=== PATIENT | female | born 1950 | race Caucasian/White ===

== ENCOUNTER → 2024-10-24 | Outpatient (CLI) | payer MEDICARE, SELFPAY ==
[2024-10-24 11:19] LABS: Calcium, Ionized 4.8 mg/dL (4.6-5.6)
[2024-10-24 11:23] LABS: Basophils % (Auto) 0 % (0-2.5); Eosinophils # (Auto) 0.1 Thou/mm3 (0.0-0.5); Eosinophils % (Auto) 2 % (0-10); Hematocrit 39.2 % (36.0-46.0); Hemoglobin 12.1 g/dL (12.0-16.0); Immature Granulocytes % (Auto) 0 % (0-0); Immature Granulocytes Auto 0.02 Thou/mm3 (0.00-0.00); Lymphocytes # (Auto) 2.9 Thou/mm3 (1.0-4.8); Lymphocytes % (Auto) 32 % (10-50); Mean Corpuscular HGB Conc 30.9 g/dl (31.0-37.0); Mean Corpuscular Hemoglobin 25.1 pg (25.0-35.0); Mean Corpuscular Volume 81 fL (80-100); Monocytes # (Auto) 0.5 Thou/mm3 (0.0-0.8); Monocytes % (Auto) 5 % (0-12); Neutrophils # (Auto) 5.6 Thou/mm3 (1.8-7.7); Neutrophils % (Auto) 61 % (37-80); Nucleated Red Blood Cell % 0 /100 WBC (0); Platelet Count 250 Thou/mm3 (140-440); RDW Standard Deviation 41.6 fL (36.4-46.3); Red Blood Count 4.83 Miln/mm3 (4.00-5.20); White Blood Count 9.1 Thou/mm3 (3.6-11.0)
[2024-10-24 11:30] LABS: Glucose Estimated Average 177 mg/dL (80-131); Hemoglobin A1C 7.8 % Hgb (4.8-6.0)
[2024-10-24 11:38] LABS: Parathyroid Hormone Intact 306.2 pg/ml (18.5-88.0)
[2024-10-24 11:41] LABS: Vitamin D 25 Hydroxy Total 21.7 ng/mL (7.3-40.2)
[2024-10-24 11:44] LABS: Alanine Aminotransferase 12 U/L (10-49); Albumin, Serum 4.2 gm/dL (3.4-4.8); Albumin/Globulin Ratio 1.8 (1.2-2.2); Alkaline Phosphatase 95 U/L (46-116); Anion Gap 9 (7-16); Aspartate Amino Transferase 12 U/L (0-34); BUN/Creatinine Ratio 23 Ratio (12-20); Bilirubin,Direct < 0.1 mg/dL (0.0-0.3); Bilirubin,Total 0.2 mg/dL (0.3-1.2); Blood Urea Nitrogen 39 mg/dL (9-23); Calcium 9.1 mg/dL (8.3-10.6); Calcium (Corrected) 9.1 mg/dL (8.5-10.1); Carbon Dioxide 24.7 mMol/L (20.0-31.0); Cardiac Risk Estimate 4.2 RATIO (3.7-5.6); Chloride 106 mMol/L (98-107); Cholesterol 143 mg/dL (132-200); Creatinine (Component) 1.7 mg/dL (0.6-1.3); Globulin 2.3 gm/dL (2.3-3.5); Glucose 156 mg/dL (74-106); HDL Cholesterol 34 mg/dL (40-60); LDL Cholesterol,Calculated 45 mg/dL (0-130); Osmolality,Calculated 291 (275-295); Phosphorous 3.6 mg/dL (2.4-5.1); Potassium 5.2 mMol/L (3.4-5.1); Sodium 140 mMol/L (136-145); Total Protein 6.5 gm/dL (5.7-8.2); Triglycerides 318 mg/dL (30-150); eGFR 32 See Note
== END | disposition home or self-care (01) ==
PROVIDERS: PCP Family Medicine; Referring Provider Internal Medicine Nephrology; Visit Provider Specialist
DX: I12.9 Hypertensive chronic kidney disease with stage 1 through stage 4 chronic kidney disease, or unspecified chronic kidney disease (principal); E11.22 Type 2 diabetes mellitus with diabetic chronic kidney disease; N18.9 Chronic kidney disease, unspecified; E66.9 Obesity, unspecified; E11.65 Type 2 diabetes mellitus with hyperglycemia
CPT/HCPCS: 36415; 80053; 80061; 82248; 82306; 82330; 83036; 83970; 84100; 85025

== ENCOUNTER 2024-10-27 20:51 | Emergency (ER) | payer MEDICARE, SELFPAY ==
[2024-10-27 21:51] VITALS: BP 127/65; PULSE 78; RESP 20; TEMP 36.6; O2SAT 98
--- NOTE | 2024-10-27 21:55 | XR_ITS ---
Examination: PA chest single view Technique: Upright PA chest single view Exam date and time: October 27, 2024 2155 hrs. Indications: Patient fell today with into the chest, chest pain Findings: No pneumothorax Mild prominence left ventricle Increased markings at the lung bases, consider proctitis Old appearing fractures right lower anterior ribs Impression: No pneumothorax Basilar bronchitis pattern
--- NOTE | 2024-10-27 21:55 | XR_ITS ---
Examination: CT cervical spine without contrast 2-D sagittal reconstructions 2-D coronal reconstructions 3-D reconstructions. Exam date and time:October 27, 2024 1020 hrs. Indications: Patient fell today with injury to the neck, neck pain CTDI:vol (mGy) 8.76 DLP: (mGycm) 180 Technique: Multiple 2 mm axial sections of the cervical spine have been obtained. The coronal and sagittal reconstructions have been obtained. 3-D reconstructions have been obtained. Low dose protocols were performed. One or more of the following dose reduction techniques were used; automated exposure control, adjustment of the mA and/or KV according to patient size, use of iterative reconstruction technique. Findings: Axial sections demonstrate intact base of the skull. C1 exhibit satisfactory relationship to the odontoid. No acute cervical vertebral body fracture seen. Alignment posterior spinous processes satisfactory. Impression: No acute cervical fracture.
--- NOTE | 2024-10-27 21:55 | XR_ITS ---
Examination: Knee, left , 3 views Technique: Knee AP, lateral, oblique 3 views Date and time of exam: October 27, 2024 2155 hrs. Indications: Patient fell today with injury to the knee, knee pain Findings: Total left knee arthroplasty Satisfactory alignment No fracture Impression: No acute fracture
--- NOTE | 2024-10-27 21:55 | XR_ITS ---
Examination: Forearm, right, 2 views. Technique: Forearm, AP, lateral 2 views Date and time of exam: October 27, 2024 2155 hrs. Indications: Patient fell today with injury to the forearm, forearm pain Findings: No acute fracture No dislocation Impression: No acute fracture
--- NOTE | 2024-10-27 21:55 | XR_ITS ---
Examination: Hand, right 3 views Technique: Hand AP, oblique, lateral 3 views Date and time of exam: October 27, 2024 at 2155 hrs. Indications: Patient fell today with injury to the head, head pain Findings: Acute fracture at the base of the fifth metacarpal No significant displacement Impression: Acute nondisplaced fracture at the base of the fifth metacarpal
--- NOTE | 2024-10-27 21:55 | XR_ITS ---
Examination: CT brain head without contrast. 2-D sagittal coronal reconstructions Date and time of exam:October 27, 2024 at 1020 hrs. Indications: Patient fell today with injury to the head, head pain CTDI: vol (mGy):52.8 DLP: (mGycm):1045 Technique: Multiple CT axial sections of the brain have been obtained, 5 mm slice thickness. Contrast has not been administered. 2-D sagittal, coronal reconstructions have been obtained Low dose protocols were performed. One or more of the following dose reduction techniques were used; automated exposure control, adjustment of the mA and/or KV according to patient size, use of iterative reconstruction technique. Findings: No significant ventricular enlargement. Right frontal scalp swelling Intra-axial or extra-axial hemorrhage density is not seen. No mass effect or midline shift Basal cisterns are not remarkable. Fourth ventricle is midline. Artifacts from the patient's right cochlear implant device Impression: Negative for acute hemorrhage, mass effect or midline shift
--- NOTE | 2024-10-27 21:56 | PD.EDRME ---
Rapid Medical Screening Exam [facility] Arrival date/time: 10/27/24 20:51 74F with history of HTN , DM, COPD, and CAD presents to ED with head, R-chest, distal RUE, and L knee pain after she tripped on a cord and fell. Patient also has various scrapes, but has had a tetanus shot in the past 5 years. Chief Complaint: Fall Vital signs: Vital Signs Temperature 97.8 F 10/27/24 21:51 Pulse Rate 78 10/27/24 21:51 Respiratory Rate 20 10/27/24 21:51 Blood Pressure 127/65 10/27/24 21:51 Pulse Oximetry (%) 98 10/27/24 21:51 Oxygen Delivery Method Room Air 10/27/24 21:51
[2024-10-28] VITALS: BMI 42.9
--- NOTE | 2024-10-28 00:15 | PD.EDFALL ---
ED Fall Injury RME/HPI General Chief Complaint: Fall Stated Complaint: FELL, HIT HEAD Source: patient Arrival date/time: 10/27/24 20:51 Mode of arrival: ambulatory Limitations: no limitations RME / HPI RME / HPI Narrative: 10/27/24 20:51 74F with history of HTN , DM, COPD, and CAD presents to ED with head, R-chest, distal RUE, and L knee pain after she tripped on a cord and fell. Patient also has various scrapes, but has had a tetanus shot in the past [address] BARRETT MAIN ED EVALUATION: 74-year-old female with a medical history significant for hypertension, diabetes mellitus, chronic obstructive pulmonary disease (COPD), and coronary artery disease (CAD) who presents to the Emergency Department after experiencing a fall at home. She reports that she tripped on a cord and fell, sustaining head, right chest, distal right upper extremity (RUE), and left knee pain. She also has multiple superficial scrapes but reports that she received a tetanus vaccination within the past five years. She denies loss of consciousness, seizure-like activity, or any preceding dizziness, palpitations, or weakness before the fall. No nausea, vomiting, vision changes, or focal neurological deficits are reported. Related Data Home Medications ?Medication ?Instructions ?Recorded ?Confirmed enalapril maleate 20 mg tablet 20 mg PO QDAY High Blood Pressure 06/05/15 12/08/23 (Vasotec) #0 tabs furosemide 20 mg tablet (Lasix) 40 mg PO QDAY DIURETIC #0 tabs 06/05/15 12/08/23 albuterol sulfate 90 mcg/actuation 2 puff inhalation Q4H PRN 05/13/22 12/08/23 aerosol inhaler Shortness Of Breath Or Wheezing calcitriol 0.25 mcg capsule 0.25 mcg PO QDAY 05/13/22 12/08/23 clopidogrel 75 mg tablet 1 tab PO DAILY 05/13/22 12/08/23 Held on 12/09/23. Instructions: Resume on 12/10/23. cyanocobalamin (vitamin B-12) 1 ml subcut QMONTH 05/13/22 12/08/23 1,000 mcg/mL injection solution epinephrine 0.3 mg/0.3 mL 0.3 mg subcut DAILY PRN Allergic 05/13/22 12/08/23 injection, auto-injector Reaction fluticasone fur. 100 mcg-umeclid 1 ea inhalation DAILY 05/13/22 12/08/23 62.5 mcg-vilant 25 mcg inhalat.powder (Trelegy Ellipta) fluticasone propionate 50 2 inh inhalation DAILY 05/13/22 12/08/23 mcg/actuation blister powder for inhalation gabapentin 100 mg capsule 100 mg PO QDAY 05/13/22 12/08/23 montelukast 10 mg tablet 1 tab PO DAILY 05/13/22 12/08/23 rosuvastatin 20 mg tablet 20 mg PO DAILY 05/13/22 12/08/23 triamcinolone acetonide 0.1 % 1 applic topical BID 05/13/22 12/08/23 topical cream semaglutide 1 mg/dose (2 mg/1.5 1 mg subcut QWEEK 12/03/22 12/08/23 mL) subcutaneous pen injector (Ozempic) levocetirizine 5 mg tablet 5 mg PO QDAY 12/07/22 12/08/23 azelastine 137 mcg (0.1 %) nasal 1 spray intranasal BID 12/08/23 12/08/23 spray docusate sodium 250 mg capsule 250 mg PO BID 12/08/23 12/08/23 empagliflozin 25 mg tablet 25 mg PO QAM 12/08/23 12/08/23 (Jardiance) ibandronate 150 mg tablet 150 mg PO QMONTH 12/08/23 12/08/23 insulin aspart U-100 100 unit/mL 28 unit subcut TID 12/08/23 12/08/23 (3 mL) subcutaneous pen (Novolog FlexPen U-100 Insulin aspart) insulin glargine 100 unit/mL (3 71 unit subcut QAM 12/08/23 12/08/23 mL) subcutaneous pen (Lantus Solostar U-100 Insulin) ondansetron HCl 4 mg tablet 4 mg PO Q12H 12/08/23 12/08/23 patiromer calcium sorbitex 8.4 8.4 g PO QDAY 12/08/23 12/08/23 gram oral powder packet (Veltassa) rosuvastatin 20 mg tablet (Crestor) 20 mg PO QDAY 12/08/23 12/08/23 sodium bicarbonate 650 mg tablet 650 mg PO BID 12/08/23 12/08/23 Previous Rx's ?Medication ?Instructions ?Recorded cephalexin 500 mg capsule 500 mg PO BID #3 caps 12/09/23 Allergies Allergy/AdvReac Type Severity Reaction Status Date / Time aspirin Allergy Severe Swelling Verified 10/27/24 20:53 fluoxetine Allergy Severe Swelling Verified 10/27/24 20:53 hydrocodone Allergy Severe Hives Verified 10/27/24 20:53 loratadine Allergy Severe Swelling Verified 10/27/24 20:53 lovastatin Allergy Severe THROAT Verified 10/27/24 20:53 SWELLING naproxen Allergy Severe Swelling Verified 10/27/24 20:53 Penicillins Allergy Severe Swelling Verified 10/27/24 20:53 sulfamethoxazole Allergy Severe Swelling Verified 10/27/24 20:53 trimethoprim Allergy Severe Swelling Verified 10/27/24 20:53 azithromycin Allergy Swelling Verified 10/27/24 20:53 of Lip/Tongue/Throat cortisone Allergy Swelling Verified 10/27/24 20:53 of Lip/Tongue/Throat liraglutide (From Victoza) Allergy Swelling Verified 10/27/24 20:53 of Lip/Tongue/Throat vancomycin Allergy Swelling Verified 10/27/24 20:53 of Lip/Tongue/Throat tramadol AdvReac Unknown DOES NOT Verified 10/27/24 20:53 WORK FOR [employer] Past Medical History Past Medical History NEUROLOGIC: Negative Neurological Disorders or Seizures CARDIAC: Positive Cardiac Disorders, Myocardial Infarction (2012 HOSP), Hypercholesterolemia (TAKES MED), Edema (SWOLLEN FEET AND ANKLE), Cellulitis (RASH TO RIGHT ARM REACTION TO IMMUNO THERAPY) and Hypertension (TAKES MED); Negative Congestive Heart Failure RESPIRATORY: Positive Chronic Obstructive Pulmonary Disease (COPD) (HAS INHALERS) and Pneumonia (HOSP FOR PNUEMONIA) GASTROINTESTINAL: Positive Gastrointestinal Disorders and Obesity; Negative Hepatitis GENITOURINARY: Positive Genitourinary Disorders and Renal Disease (37% FUNCTION 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) REPRODUCTIVE: Positive Previous Pregnancies (X3) MUSCULOSKELETAL: Positive Musculoskeletal Disorders and Arthritis ENT: Positive Deafness (bilateral) ENDOCRINE: Positive Endocrine Disorders and Diabetes Mellitus Type 2 (TAKES PO AND SUBQ); Negative Diabetes Mellitus Type 1 HEMATOLOGIC: Positive Blood Disorders (PERNICIOUS ANEMIA) OTHER HISTORY: Positive Hospitalization ([facility] [place]), Shingles (2004), Anesthesia Reactions (Sensitive to anesthesia), Chicken Pox, Measles, Mumps and Cancer; Negative Autoimmune Disease, Falls, Blood Transfusions, Blood Transfusion Reaction, Chemotherapy or MRSA Family History FAMILY HISTORY: Positive Family Psychiatric Problems (MOTHER (DEPRESSION,ANXIETY)), Family Cardiac Disorders (MOTHER (HEART,HTN),BROTHER (AR)), Family Gastrointestinal Problems (MOTHER,BROTHER (HEPATITIS C),MOTHER (ULCER)), Family Cancer (MOTHER (COLON)) and Family Surgery (MOTHER); Negative Family Respiratory Disorders or Family Anesthesia Reaction Surgical History SURGICAL: Positive Angiogram, Tonsillectomy, Tubal Ligation and Section (X3); Negative Cardiac Surgery or Pacemaker Social History SMOKING STATUS: Never smoker ED Exam Narrative Physical exam: GENERAL APPEARANCE: alert and oriented x 4, well-developed, well-nourished, no acute distress VITALS: All vitals were reviewed and the pulse ox is 97% on room air, which is normal according to my interpretation. HEENT: Normocephalic, atraumatic; pupils equal, round, reactive to light; EOMI; mucous membranes pink, moist; oropharynx clear NECK: Supple LUNGS: CTABL; no wheezes, no rales, no rhonchi HEART: Regular rate, regular rhythm; normal S1, S2; no murmurs ABDOMEN: non distended; normal BS; soft, no tenderness, no guarding, no rebound; no masses, no organomegaly, no hernia BACK: no CVA tenderness EXTREMITIES: atraumatic; no edema NEUROLOGIC: awake; alert and oriented x4; cranial nerves II-XII grossly intact; no focal sensory or motor deficits PSYCHIATRIC: appropriate mood and affect SKIN: warm, dry, normal color; no rashes General Limitations: Present no limitations Course Quality Measures none Orders Category Date Time Status Wound Care NOW Care 10/27/24 21:[address] cervical spine wo con Stat Exams 10/27/24 21:[address] head/brain wo con Stat Exams 10/27/24 21:55 Completed XR chest 1V portable Stat Exams 10/27/24 21:55 Completed XR forearm RT 2V Stat Exams 10/27/24 21:55 Completed XR hand comp RT min 3V Stat Exams 10/27/24 21:55 Completed XR knee LT 3V Stat Exams 10/27/24 21:55 Completed Vital Signs Vital signs: Vital Signs Temperature 97.8 F 10/27/24 21:51 Pulse Rate 78 10/27/24 21:51 Respiratory Rate 20 10/27/24 21:51 Blood Pressure 127/65 10/27/24 21:51 Pulse Oximetry (%) 98 10/27/24 21:51 Oxygen Delivery Method Room Air 10/27/24 21:51 Fall MDM Narrative MDM Narrative:: Scribe Attestation: I, Rachel Davis, am scribing for and in the presence of Dr. Barrett. Provider Notation: Although this document has been carefully reviewed, there may still be some phonetic and other typographical errors. These errors are purely grammatical due to imperfections in the software program and should not be construed in any way to compromise the substance of the patient's medical care during this visit. Patient data External records reviewed:: [facility] previous records Clinical information provided by:: patient Social determinants that could affect healthcare access:: none Patient has the following chronic illnesses:: see PMH How is presenting disease/condition affected by chronic disease/condition?: uneffected by Evaluation data The following diagnostics were reviewed and interpreted by me:: lab results and radiology exam(s) Lab and/or radiology exams considered but not ordered:: na Interpretation Summary: I personally reviewed the radiology data and agree with the radiologist's interpretation. Examination: Knee, left , 3 views Findings: Total left knee arthroplasty Satisfactory alignment No fracture Impression: No acute fracture Examination: CT brain head without contrast. Findings: No significant ventricular enlargement. Right frontal scalp swelling Intra-axial or extra-axial hemorrhage density is not seen. No mass effect or midline shift Basal cisterns are not remarkable. Fourth ventricle is midline. Artifacts from the patient's right cochlear implant device Impression: Negative for acute hemorrhage, mass effect or midline shift Examination: Hand, right 3 views Findings: Acute fracture at the base of the fifth metacarpal No significant displacement Impression: Acute nondisplaced fracture at the base of the fifth metacarpal Examination: Forearm, right, 2 views. Findings: No acute fracture No dislocation Impression: No acute fracture Examination: PA chest single view Findings: No pneumothorax Mild prominence left ventricle Increased markings at the lung bases, consider proctitis Old appearing fractures right lower anterior ribs Impression: No pneumothorax Basilar bronchitis pattern Examination: CT cervical spine without contrast Findings: Axial sections demonstrate intact base of the skull. C1 exhibit satisfactory relationship to the odontoid. No acute cervical vertebral body fracture seen. Alignment posterior spinous processes satisfactory. Impression: No acute cervical fracture. Medications / Prescriptions Medications or Prescriptions considered but not ordered:: na Medication administrations:: as above, if any Consultations Consultation(s) initiated? (list below): No Diagnosis Fall Differential Diagnosis: syncope, dislocation of shoulder region, fracture of wrist, compression fracture and concussion without loss of consciousness Most likely diagnosis given after review of the tests above:: Closed fracture of fifth metacarpal bone Admission Indicated Admission indicated?: not indicated Admission Request Was there a request for admission?: No Disposition Plan Disposition Plan: Discharge Discharge Attestation Discharge Attestation: The patient and all family members were given an opportunity to ask questions and understood the discharge instructions. Discharge instructions specifically effects, indications for sooner follow up or return to the emergency department, and the expected course of current diagnosis. Patient condition: Stable Discharge Plan Plan Patient Disposition: HOME (Self Care) Prescriptions/Referrals Prescriptions/Med Rec: No Action enalapril maleate [Vasotec] 20 MG tablet 20 mg PO QDAY Qty: 0 furosemide [Lasix] 20 MG tablet 40 mg PO QDAY Qty: 0 fluticasone propionate 50 mcg/actuation Blister With Device 2 inh INHALATION DAILY clopidogrel 75 mg tablet 1 tab PO DAILY Patient Comments: TAKE 1 TABLET BY MOUTH ONCE DAILY FOR HEART FOR 90 DAYS triamcinolone acetonide 0.1 % cream 1 applic TOPICAL BID Patient Comments: APPLY CREAM TOPICALLY TO AFFECTED AREA TWICE DAILY (AVOID FACE) cyanocobalamin (vitamin B-12) 1,000 mcg/mL solution 1 ml SUBCUT QMONTH Patient Comments: INJECT 1 ML (CC) ONCE EVERY MONTH montelukast 10 mg tablet 1 tab PO DAILY Patient Comments: TAKE 1 TABLET BY MOUTH ONCE DAILY gabapentin 100 mg Capsule 100 mg PO QDAY epinephrine 0.3 mg/0.3 mL Auto-Injector 0.3 mg SUBCUT DAILY PRN (Reason: Allergic Reaction) albuterol sulfate 90 mcg/actuation HFA aerosol inhaler 2 puff INHALATION Q4H PRN (Reason: Shortness Of Breath Or Wheezing) calcitriol 0.25 mcg Capsule 0.25 mcg PO QDAY rosuvastatin 20 mg Tablet 20 mg PO DAILY Trelegy Ellipta 100-62.5-25 mcg blister with device 1 ea INHALATION DAILY Patient Comments: INHALE 1 PUFF BY MOUTH ONCE DAILY DIRECTED ondansetron HCl [Zofran] 4 mg Tablet 4 mg PO Q12H sodium bicarbonate 650 mg Tablet 650 mg PO BID azelastine 137 mcg (0.1 %) Aerosol,[place] 1 spray INTRANASAL BID Rx Instructions: administer into each nostril insulin aspart U-100 [Novolog FlexPen U-100 Insulin] 100 unit/mL (3 mL) Insulin Pen 28 unit SUBCUT TID rosuvastatin [Crestor] 20 mg Tablet 20 mg PO QDAY insulin glargine [Lantus Solostar U-100 Insulin] 100 unit/mL (3 mL) Insulin Pen 71 unit SUBCUT QAM Jardiance 25 mg Tablet 25 mg PO QAM Veltassa 8.4 gram Powder In Packet 8.4 g PO QDAY ibandronate 150 mg Tablet 150 mg PO QMONTH docusate sodium 250 mg Capsule 250 mg PO BID cephalexin 500 mg capsule 500 mg PO BID Qty: 3 0RF Rx Instructions: Take first pill this afternoon Ozempic 1 mg/dose (2 mg/1.5 mL) Pen Injector 1 mg SUBCUT QWEEK levocetirizine 5 mg Tablet 5 mg PO QDAY Referrals: Mindi Conti FNP [Primary Care Provider] - In 1 week Rodrigo Auguste MD [Physician] - Problem List Clinical Impression: Closed fracture of fifth metacarpal bone Patient/Caregiver Discharge Instructions Education Materials: ED Closed Hand Fracture (Adult), ED Splint Care, Fiberglass Additional Instructions: Call orthopedic office for follow up appointment Print Language: Macedonian Stand Alone Forms: Annie Award Info., Patient Portal Info Letter
[2024-10-28 00:20] VITALS: BP 136/72; PULSE 70; RESP 18; TEMP 36.6; O2SAT 97
[2024-10-28] MEDS: ACETAMINOPHEN 500 MG TABLET 1000 MG PO (00:37)
== END 2024-10-28 01:27 | disposition home or self-care (01) ==
PROVIDERS: Emergency Provider Emergency Medicine; PCP Nurse Practitioner Family
DX: S62.316A Displaced fracture of base of fifth metacarpal bone, right hand, initial encounter for closed fracture (principal); E11.9 Type 2 diabetes mellitus without complications; I10 Essential (primary) hypertension; J44.9 Chronic obstructive pulmonary disease, unspecified; I25.10 Atherosclerotic heart disease of native coronary artery without angina pectoris; M25.562 Pain in left knee; R51.9 Headache, unspecified; W01.0XXA Fall on same level from slipping, tripping and stumbling without subsequent striking against object, initial encounter; Y92.009 Unspecified place in unspecified non-institutional (private) residence as the place of occurrence of the external cause; R07.9 Chest pain, unspecified
CPT/HCPCS: 70450; 71045; 72125; 73090; 73130; 73562; 99284; A9270

== ENCOUNTER → 2024-12-19 | Outpatient (CLI) | payer MEDICARE, MEDICAID, SELFPAY ==
[2024-12-19 14:03] LABS: Collection Type, Urine Clean Catch; Squamous Epithelial Cell,Urine 0 /hpf (0-5)
[2024-12-19 14:35] LABS: Basophils % (Auto) 1 % (0-2.5); Eosinophils # (Auto) 0.1 Thou/mm3 (0.0-0.5); Eosinophils % (Auto) 1 % (0-10); Hematocrit 38.4 % (36.0-46.0); Immature Granulocytes % (Auto) 1 % (0-0); Immature Granulocytes Auto 0.04 Thou/mm3 (0.00-0.00); Lymphocytes % (Auto) 23 % (10-50); Mean Corpuscular HGB Conc 31.3 g/dl (31.0-37.0); Mean Corpuscular Hemoglobin 24.7 pg (25.0-35.0); Mean Corpuscular Volume 79 fL (80-100); Monocytes # (Auto) 0.4 Thou/mm3 (0.0-0.8); Monocytes % (Auto) 5 % (0-12); Neutrophils % (Auto) 70 % (37-80); Nucleated Red Blood Cell % 0 /100 WBC (0); Platelet Count 254 Thou/mm3 (140-440); RDW Standard Deviation 40.7 fL (36.4-46.3); Red Blood Count 4.85 Miln/mm3 (4.00-5.20); White Blood Count 8.6 Thou/mm3 (3.6-11.0)
[2024-12-19 14:39] LABS: Bilirubin,Urine Negative (Negative); Blood,Urine Negative (Negative); Clarity,Urine Clear (Clear/Hazy); Color,Urine Colorless (Lt Yel-Yel); Glucose, Urine 4+ (Negative); Ketones,Urine Negative (Negative); Leukocyte Esterase,Urine Negative (Negative); Nitrite,Urine Negative (Negative); PH,Urine 6.5 (5.0-7.0); Protein,Urine Negative (Neg - Trace); RBC,Urine 1 /hpf (0-3); Specific Gravity,Urine 1.006 (1.001-1.035); Urobilinogen,Urine Negative mg/dL (0.0-1.0); WBC,Urine 6 /hpf (0-5)
[2024-12-19 14:47] LABS: Parathyroid Hormone Intact 127.3 pg/ml (18.5-88.0)
[2024-12-19 14:48] LABS: Albumin, Serum 4.4 gm/dL (3.4-4.8); Anion Gap 8 (7-16); BUN/Creatinine Ratio 26 Ratio (12-20); Blood Urea Nitrogen 39 mg/dL (9-23); Calcium 9.5 mg/dL (8.3-10.6); Calcium (Corrected) 9.5 mg/dL (8.5-10.1); Carbon Dioxide 22.7 mMol/L (20.0-31.0); Chloride 107 mMol/L (98-107); Creatinine (Component) 1.5 mg/dL (0.6-1.3); Glucose 195 mg/dL (74-106); Glucose Estimated Average 174 mg/dL (80-131); Hemoglobin A1C 7.7 % Hgb (4.8-6.0); Osmolality,Calculated 290 (275-295); Phosphorous 3.7 mg/dL (2.4-5.1); Potassium 5.6 mMol/L (3.4-5.1); Sodium 138 mMol/L (136-145); eGFR 37 See Note
[2024-12-19 14:50] LABS: Vitamin D 25 Hydroxy Total 34.2 ng/mL (7.3-40.2)
== END | disposition home or self-care (01) ==
LOC: COPL 12:46
PROVIDERS: PCP Family Medicine; Referring Provider Internal Medicine Nephrology; Visit Provider Internal Medicine Nephrology
DX: E11.9 Type 2 diabetes mellitus without complications (principal); E55.9 Vitamin D deficiency, unspecified
CPT/HCPCS: 36415; 80069; 81001; 82306; 83036; 83970; 85025

== ENCOUNTER → 2025-01-31 | Outpatient (CLI) | payer MEDICARE, MEDICAID, SELFPAY ==
--- NOTE | 2025-01-31 11:30 | XR_ITS ---
Examination: Screening digital mammography, bilateral Computer aided detection 3-D breast Tomosynthesis, bilateral Date and time of exam: January 23, 2025 1129 hours Compared to mammograms dating to April 03, 2022 Indication: Screening Technique: Nonmagnified MLO, CC views of the breasts to been obtained, reconstructed from 3-D Tomosynthesis images. R2 computer aided detection program utilized for evaluation of suspicious masses and/or abnormal calcifications. 3-D Tomosynthesis images obtained. Findings: The breasts are heterogeneously dense, which may obscure small masses Breast biopsy marker 12:00 position left breast anterior depth Numerous microcalcifications retroareolar region left breast Impression: BI-RADS Category 0: Incomplete: Need additional imaging evaluation Recommend magnification spot compression views of microcalcifications retroareolar region left breast as well as left breast sonography to complete the workup.
== END | disposition home or self-care (01) ==
LOC: CDIM 11:09
PROVIDERS: Referring Provider Nurse Practitioner Family; Visit Provider Nurse Practitioner Family
DX: Z12.31 Encounter for screening mammogram for malignant neoplasm of breast (principal); R92.1 Mammographic calcification found on diagnostic imaging of breast
CPT/HCPCS: 77063; 77067

== ENCOUNTER → 2025-02-23 | Outpatient (CLI) | payer MEDICARE, MEDICAID, SELFPAY ==
[2025-02-23 09:55] LABS: Basophils % (Auto) 1 % (0-2.5); Eosinophils # (Auto) 0.1 Thou/mm3 (0.0-0.5); Eosinophils % (Auto) 2 % (0-10); Hematocrit 37.1 % (36.0-46.0); Hemoglobin 11.6 g/dL (12.0-16.0); Immature Granulocytes % (Auto) 1 % (0-0); Immature Granulocytes Auto 0.04 Thou/mm3 (0.00-0.00); Lymphocytes # (Auto) 2.3 Thou/mm3 (1.0-4.8); Lymphocytes % (Auto) 27 % (10-50); Mean Corpuscular HGB Conc 31.3 g/dl (31.0-37.0); Mean Corpuscular Hemoglobin 25.6 pg (25.0-35.0); Mean Corpuscular Volume 82 fL (80-100); Monocytes # (Auto) 0.5 Thou/mm3 (0.0-0.8); Monocytes % (Auto) 5 % (0-12); Neutrophils # (Auto) 5.5 Thou/mm3 (1.8-7.7); Neutrophils % (Auto) 65 % (37-80); Nucleated Red Blood Cell % 0 /100 WBC (0); Platelet Count 235 Thou/mm3 (140-440); RDW Standard Deviation 46.1 fL (36.4-46.3); Red Blood Count 4.53 Miln/mm3 (4.00-5.20); White Blood Count 8.5 Thou/mm3 (3.6-11.0)
[2025-02-23 10:05] LABS: Glucose Estimated Average 177 mg/dL (80-131); Hemoglobin A1C 7.8 % Hgb (4.8-6.0)
[2025-02-23 10:21] LABS: Alanine Aminotransferase 15 U/L (10-49); Albumin, Serum 4.3 gm/dL (3.4-4.8); Alkaline Phosphatase 91 U/L (46-116); Anion Gap 8 (7-16); Aspartate Amino Transferase 13 U/L (0-34); BUN/Creatinine Ratio 22 Ratio (12-20); Bilirubin,Direct < 0.1 mg/dL (0.0-0.3); Bilirubin,Total 0.3 mg/dL (0.3-1.2); Blood Urea Nitrogen 37 mg/dL (9-23); Calcium 9.1 mg/dL (8.3-10.6); Carbon Dioxide 19.5 mMol/L (20.0-31.0); Chloride 112 mMol/L (98-107); Creatinine (Component) 1.7 mg/dL (0.6-1.3); Glucose 203 mg/dL (74-106); Osmolality,Calculated 292 (275-295); Phosphorous 3.5 mg/dL (2.4-5.1); Potassium 5.2 mMol/L (3.4-5.1); Sodium 139 mMol/L (136-145); Total Protein 6.7 gm/dL (5.7-8.2); eGFR 31 See Note
[2025-02-23 10:49] LABS: Collection Type, Urine Clean Catch
[2025-02-23 11:35] LABS: Bilirubin,Urine Negative (Negative); Blood,Urine Negative (Negative); Clarity,Urine Clear (Clear/Hazy); Color,Urine Lt-Yellow (Lt Yel-Yel); Glucose, Urine 4+ (Negative); Ketones,Urine Negative (Negative); Leukocyte Esterase,Urine Negative (Negative); Nitrite,Urine Negative (Negative); PH,Urine 5.5 (5.0-7.0); Protein,Urine Negative (Neg - Trace); RBC,Urine 2 /hpf (0-3); Specific Gravity,Urine 1.015 (1.001-1.035); Squamous Epithelial Cell,Urine < 1 /hpf (0-5); Urobilinogen,Urine Negative mg/dL (0.0-1.0); WBC,Urine 5 /hpf (0-5)
== END | disposition home or self-care (01) ==
LOC: COPL 09:21
PROVIDERS: PCP Nurse Practitioner Family; Referring Provider Internal Medicine Nephrology; Visit Provider Internal Medicine Nephrology
DX: E11.22 Type 2 diabetes mellitus with diabetic chronic kidney disease (principal); I12.9 Hypertensive chronic kidney disease with stage 1 through stage 4 chronic kidney disease, or unspecified chronic kidney disease; N18.9 Chronic kidney disease, unspecified; E66.9 Obesity, unspecified; E78.5 Hyperlipidemia, unspecified
CPT/HCPCS: 36415; 80048; 80069; 80076; 81001; 83036; 84100; 85025

== ENCOUNTER → 2025-02-28 | Outpatient (CLI) | payer MEDICARE, MEDICAID, SELFPAY ==
--- NOTE | 2025-02-28 13:00 | XR_ITS ---
Examination: Breast ultrasound, unilateral, left complete Date and time of exam: February 28, 2025 1308 hours INDICATIONS: Mammogram January 31, 2025 numerous microcalcifications retroareolar region left breast Technique: Real-time rice scale ultrasonographic imaging performed left breast including all 4 quadrants as well as nipple retroareolar and axillary region. Findings: No cystic or solid mass Dilated retroareolar ducts IMPRESSION: BI-RADS Category 2: Benign findings
--- NOTE | 2025-02-28 13:30 | XR_ITS ---
Examination: Diagnostic digital mammography, unilateral, left Computer aided detection 3-D breast Tomosynthesis, unilateral Date and time of exam: February 28, 2025 1317 hours INDICATIONS: Microcalcifications in the retroareolar region left breast Technique: Nonmagnified MLO, CC views of the left breast have been obtained, reconstructed from 3-D Tomosynthesis images. R2 computer aided detection program utilized for evaluation of suspicious masses and/or abnormal calcifications. 3-D Tomosynthesis images obtained. Findings: The breast is heterogeneously dense, which may obscure small masses Probably benign breast calcifications, breast biopsy marker retroareolar again noted Impression: BI-RADS category 3: Probably benign findings Recommend 1 additional 6 month left mammogram follow-up
== END | disposition home or self-care (01) ==
LOC: CDIM 12:44
PROVIDERS: PCP Family Medicine; Referring Provider Nurse Practitioner Family; Visit Provider Nurse Practitioner Family
DX: R92.332 Mammographic heterogeneous density, left breast (principal); N64.89 Other specified disorders of breast
CPT/HCPCS: 76641; 77061; 77065; G0279

== ENCOUNTER → 2025-04-17 | Outpatient (CLI) | payer MEDICARE, MEDICAID, SELFPAY ==
--- NOTE | 2025-04-17 | XR_ITS ---
Examination: Abdomen 2 views Technique one AP upright AP supine abdomen 2 views Date and time: April 17, 2025 1259 hours INDICATIONS: Constipation months. FINDINGS: Large amounts of stool throughout the entire colon No obstruction No free air IMPRESSION: Large amounts of stool throughout the entire colon
== END | disposition home or self-care (01) ==
PROVIDERS: PCP Nurse Practitioner Family; Referring Provider Nurse Practitioner Family; Visit Provider Nurse Practitioner Family
DX: K59.00 Constipation, unspecified (principal)
CPT/HCPCS: 74019

== ENCOUNTER 2025-05-28 09:00 | Day surgery (SDC) | payer OTHER, MEDICAID, SELFPAY ==
--- NOTE | 2025-05-25 06:00 | EKG_ITS ---
[facility] Test Date: 2025-05-25 Pat Name: CATHY MATTA Department: Room: - Gender: Female Documentation Specialist: JENNIFER : 1950 Requested By: Subhash Perkins Order Number: [id number] Reading MD: Subhash Perkins Measurements Intervals [place] Rate: 83 P: 87 WA: 183 QRS: -26 QRSD: 89 T: 90 QT: 336 QTc: 396 Interpretive Statements SINUS RHYTHM LOW QRS VOLTAGE IN PRECORDIAL LEADS [QRS DEFLECTION < 1.0 mV IN CHEST LEADS] POSSIBLE RIGHT VENTRICULAR CONDUCTION DELAY [RSR (QR) IN V1/V2] POSSIBLE ANTERIOR MYOCARDIAL INFARCTION , PROBABLY OLD [30 ms Q WAVE IN V3/V4, OR R < 0.2 mV IN V4] Compared to ECG 12/08/2023 11:01:08 Low QRS voltage now present Myocardial infarct finding now present Indeterminate axis no longer present T-wave abnormality no longer present /store/S0/[id number].pdf
[2025-05-25 11:11] LABS: INR 1.0 (0.9-1.3); Partial Thromboplastin Time 25.6 Seconds (22.0-36.0); Prothrombin Time 10.6 Seconds (9.0-12.2)
[2025-05-25 11:14] LABS: Alanine Aminotransferase 15 U/L (10-49); Albumin, Serum 4.5 gm/dL (3.4-4.8); Albumin/Globulin Ratio 1.9 (1.2-2.2); Alkaline Phosphatase 95 U/L (46-116); Anion Gap 11 (7-16); Aspartate Amino Transferase 13 U/L (0-34); BUN/Creatinine Ratio 26 Ratio (12-20); Bilirubin,Total 0.3 mg/dL (0.3-1.2); Blood Urea Nitrogen 45 mg/dL (9-23); Calcium 9.9 mg/dL (8.3-10.6); Calcium (Corrected) 9.9 mg/dL (8.5-10.1); Carbon Dioxide 20.7 mMol/L (20.0-31.0); Chloride 111 mMol/L (98-107); Creatinine (Component) 1.7 mg/dL (0.6-1.3); Globulin 2.4 gm/dL (2.3-3.5); Glucose 182 mg/dL (74-106); Osmolality,Calculated 301 (275-295); Potassium 5.1 mMol/L (3.4-5.1); Sodium 143 mMol/L (136-145); Total Protein 6.9 gm/dL (5.7-8.2); eGFR 31 See Note
[2025-05-28 09:38] VITALS: BP 112/57; PULSE 82; RESP 18; TEMP 36.4; O2SAT 94; BMI 40.4
[2025-05-28] MEDS: GENTAMICIN/NS 80 MG IVPB 80 MG in PRE-MIXED 1 BAG 50 MG IV (10:14)
[2025-05-28] MEDS: RINGERS LACTATED 1000 ML 1,000 ML 20 ML IV (11:13)
[2025-05-28 11:48] VITALS: BP 114/62; PULSE 80; RESP 19; TEMP 36.3; O2SAT 94
[2025-05-28 11:58] VITALS: BP 121/67; PULSE 78; RESP 19; O2SAT 96
[2025-05-28 12:08] VITALS: BP 122/65; PULSE 75; RESP 14; O2SAT 97
[2025-05-28 12:18] VITALS: BP 114/54; PULSE 74; RESP 17; O2SAT 93
== END 2025-05-28 12:23 | disposition home or self-care (01) ==
PROVIDERS: Anesthesiology; PCP Nurse Practitioner Family; Referring Provider Specialist; Visit Provider Specialist
PROC: 0DJD8ZZ Inspection of Lower Intestinal Tract, Via Natural or Artificial Opening Endoscopic (ICD-10-PCS; CPT 45378; principal; 2025-05-28 10:00)
DX: D12.3 Benign neoplasm of transverse colon (principal); D12.0 Benign neoplasm of cecum; D12.2 Benign neoplasm of ascending colon; K57.30 Diverticulosis of large intestine without perforation or abscess without bleeding; E11.9 Type 2 diabetes mellitus without complications; E78.5 Hyperlipidemia, unspecified; Z79.899 Other long term (current) drug therapy; Z79.84 Long term (current) use of oral hypoglycemic drugs; Z01.810 Encounter for preprocedural cardiovascular examination
CPT/HCPCS: 45385; 36415; 80053; 85610; 85730; 93005; J1580; J7120

== ENCOUNTER → 2025-07-12 | Outpatient (CLI) | payer MEDICARE, MEDICAID, SELFPAY ==
[2025-07-12 09:51] LABS: Collection Type, Urine Clean Catch
[2025-07-12 10:48] LABS: Basophils # (Auto) 0.0 Thou/mm3 (0.0-0.2); Basophils % (Auto) 1 % (0-2.5); Eosinophils # (Auto) 0.1 Thou/mm3 (0.0-0.5); Eosinophils % (Auto) 2 % (0-10); Hematocrit 37.3 % (36.0-46.0); Hemoglobin 11.7 g/dL (12.0-16.0); Immature Granulocytes Auto 0.03 Thou/mm3 (0.00-0.00); Lymphocytes # (Auto) 2.3 Thou/mm3 (1.0-4.8); Lymphocytes % (Auto) 30 % (10-50); Mean Corpuscular HGB Conc 31.4 g/dl (31.0-37.0); Mean Corpuscular Hemoglobin 25.8 pg (25.0-35.0); Mean Corpuscular Volume 82 fL (80-100); Monocytes # (Auto) 0.5 Thou/mm3 (0.0-0.8); Monocytes % (Auto) 6 % (0-12); Neutrophils # (Auto) 4.7 Thou/mm3 (1.8-7.7); Neutrophils % (Auto) 62 % (37-80); Nucleated Red Blood Cell # 0.00 Thou/mm3 (0.00-0.00); Nucleated Red Blood Cell % 0 /100 WBC (0); Platelet Count 235 Thou/mm3 (140-440); RDW Standard Deviation 41.6 fL (36.4-46.3); Red Blood Count 4.53 Miln/mm3 (4.00-5.20); White Blood Count 7.6 Thou/mm3 (3.6-11.0)
[2025-07-12 10:58] LABS: Bilirubin,Urine Negative (Negative); Blood,Urine Negative (Negative); Clarity,Urine Clear (Clear/Hazy); Color,Urine Colorless (Lt Yel-Yel); Culture Indicated,Urine Not Indicated; Glucose, Urine 4+ (Negative); Ketones,Urine Negative (Negative); Leukocyte Esterase,Urine Negative (Negative); Nitrite,Urine Negative (Negative); PH,Urine 6.0 (5.0-7.0); Protein,Urine Trace (Neg - Trace); RBC,Urine 2 /hpf (0-3); Specific Gravity,Urine 1.018 (1.001-1.035); Squamous Epithelial Cell,Urine 1 /hpf (0-5); Urobilinogen,Urine Negative mg/dL (0.0-1.0); WBC,Urine 4 /hpf (0-5)
[2025-07-12 10:58] LABS: Glucose Estimated Average 217 mg/dL (80-131); Hemoglobin A1C 9.2 % Hgb (4.8-6.0)
[2025-07-12 11:00] LABS: Albumin, Serum 4.5 gm/dL (3.4-4.8); Anion Gap 9 (7-16); BUN/Creatinine Ratio 21 Ratio (12-20); Blood Urea Nitrogen 31 mg/dL (9-23); Calcium 9.4 mg/dL (8.3-10.6); Calcium (Corrected) 9.4 mg/dL (8.5-10.1); Carbon Dioxide 20.8 mMol/L (20.0-31.0); Chloride 112 mMol/L (98-107); Creatinine (Component) 1.5 mg/dL (0.6-1.3); Glucose 245 mg/dL (74-106); Osmolality,Calculated 297 (275-295); Phosphorous 3.0 mg/dL (2.4-5.1); Potassium 4.9 mMol/L (3.4-5.1); Sodium 142 mMol/L (136-145); eGFR 37 See Note
== END | disposition home or self-care (01) ==
LOC: COPL 09:17
PROVIDERS: PCP Family Medicine; Referring Provider Internal Medicine Nephrology; Visit Provider Internal Medicine Nephrology
DX: E11.22 Type 2 diabetes mellitus with diabetic chronic kidney disease (principal); N18.30 Chronic kidney disease, stage 3 unspecified; N39.0 Urinary tract infection, site not specified
CPT/HCPCS: 36415; 80069; 81001; 83036; 85025

== ENCOUNTER → 2025-07-24 | Outpatient (CLI) | payer MEDICARE, MEDICAID, SELFPAY ==
--- NOTE | 2025-07-24 08:30 | XR_ITS ---
Examination: CT abdomen and pelvis without contrast. Coronal 3-D reconstructions. Sagittal 2-D reconstructions. Date and time of exam: July 24, 2025, 0831 hours INDICATION: Onset lower left abdominal pain beginning 2 months ago CTDI: vol (mGy): 12.4 DLP: (mGycm): 678 Technique: Axial images of the abdomen have been obtained, 3 mm slice thickness Intravenous contrast material has not been administered. Low dose protocols were performed. One or more of the following dose reduction techniques were used; automated exposure control, adjustment of the mA and/or KV according to patient size, use of iterative reconstruction technique. Findings: No visualized liver or splenic lesion No gallstones No pancreatic or adrenal mass 6 mm soft calcification upper pole right kidney Moderate scar formation 4 mm calcification lower pole left kidney No hydronephrosis or ureteral calculi Aorta normal size No pericecal inflammatory change No diverticulitis. Atrophic uterus Bladder intact Grade 1 anterolisthesis L4 on L5, advanced disc narrowing L5-S1 IMPRESSION: Bilateral renal calculi, no hydronephrosis or ureteral calculi Moderate bilateral scar formation
== END | disposition home or self-care (01) ==
LOC: CCTX 08:15
PROVIDERS: PCP Family Medicine; Referring Provider Nurse Practitioner Family; Visit Provider Nurse Practitioner Family
DX: N20.0 Calculus of kidney (principal); N28.89 Other specified disorders of kidney and ureter
CPT/HCPCS: 74176